=== PATIENT | male | born 1980 | race Two or more races ===

== ENCOUNTER → 2020-12-25 14:44 | Outpatient (CLI) | payer BC ==
[2020-11-20 22:34] VITALS: BMI 28.1
[~2020-12-25 14:44] MED LIST: AMBIEN10 MG PO; HYDROCODON-ACE1 EA10 PO; KLONOPIN1 MG PO; LEMBOREXANT 5 MG; METHOCARBAMOL750 MG PO; Vancomycin 1.25 GM/N IV
[2020-12-25 15:53] LABS: C-REACTIVE PROTEIN 0.5 mg/dL (0.0-0.9); CREATININE - SERUM 0.9 mg/dL (0.6-1.3); VANCOMYCIN - TROUGH 19.1 ug/mL (10.0-20.0)
[2020-12-25 17:18] LABS: BASOPHILS 2.4 % (0-2); EOSINOPHILS 3.9 % (0-7); HEMATOCRIT 44.1 % (42.0-54.0); HEMOGLOBIN 14.8 g/dL (13.5-17.5); LYMPHOCYTE ABS# 0.92 10x3/uL (1.32-3.57); LYMPHOCYTES 15.7 % (15-50); MCH 29.9 pg (26.0-34.0); MCHC 33.6 g/dL (31.0-37.0); MCV 89.1 fL (80.0-100.0); MEAN PLATELET VOLUME 10.9 fL (7.4-10.4); NEUTROPHIL ABS# 3.63 10x3/uL (1.78-5.38); PLATELET COUNT 221 10x3/uL (130-400); RBC 4.95 10x6/uL (4.20-6.10); RDW 12.5 % (11.5-14.5); WBC 5.9 10x3/uL (4.8-10.8)
[2020-12-25 17:19] LABS: ERYTHROCYTE SEDIMENTATION RATE 2 mm/hr (0-15)
== END | disposition home or self-care (01) ==
LOC: D.LABREF 14:44
PROVIDERS: ATTEND Emergency Medicine
DX: T81.49XA Infection following a procedure, other surgical site, initial encounter (principal); Z79.2 Long term (current) use of antibiotics; Z45.2 Encounter for adjustment and management of vascular access device

== ENCOUNTER → 2020-12-30 15:56 | Outpatient (CLI) | payer BC ==
[2020-11-20 22:34] VITALS: BMI 28.1
[2020-12-30 16:39] LABS: C-REACTIVE PROTEIN < 0.2 mg/dL (0.0-0.9); CREATININE - SERUM 0.9 mg/dL (0.6-1.3); UREA NITROGEN 13 mg/dL (7-18); VANCOMYCIN - TROUGH 19.8 ug/mL (10.0-20.0)
[2020-12-30 16:49] LABS: BASOPHILS 1.5 % (0-2); EOSINOPHILS 4.3 % (0-7); HEMATOCRIT 44.1 % (42.0-54.0); HEMOGLOBIN 14.8 g/dL (13.5-17.5); IMMATURE GRANULOCYTES 1.7 % (0-5); LYMPHOCYTE ABS# 1.52 10x3/uL (1.32-3.57); LYMPHOCYTES 20.3 % (15-50); MCH 29.8 pg (26.0-34.0); MCHC 33.6 g/dL (31.0-37.0); MCV 88.9 fL (80.0-100.0); MEAN PLATELET VOLUME 10.9 fL (7.4-10.4); MONOCYTES 3.9 % (2-11); NEUTROPHIL ABS# 5.11 10x3/uL (1.78-5.38); NEUTROPHILS 68.3 % (40-80); PLATELET COUNT 212 10x3/uL (130-400); RBC 4.96 10x6/uL (4.20-6.10); WBC 7.5 10x3/uL (4.8-10.8)
[2020-12-30 17:41] LABS: ERYTHROCYTE SEDIMENTATION RATE 3 mm/hr (0-15)
== END | disposition home or self-care (01) ==
LOC: D.LABREF 15:56
PROVIDERS: ATTEND Emergency Medicine
DX: T81.49XA Infection following a procedure, other surgical site, initial encounter (principal); Z45.2 Encounter for adjustment and management of vascular access device; Z79.2 Long term (current) use of antibiotics